=== PATIENT | male | born 1955 | race Asian ===

== ENCOUNTER 2018-01-22 10:09 | Outpatient (CLI) | payer OTHER | END 2018-01-22 10:10 | disposition critical access hospital (66) | LOC: EMS 10:09 | PROVIDERS: ATTEND Surgery | DX: R56.9 Unspecified convulsions (principal) | CPT/HCPCS: A0425; A0429 ==

== ENCOUNTER 2018-01-22 10:45 | Emergency (ER) | payer OTHER ==
[2018-01-22] MEDS ORDERED: LORazepam 2 MG/ML VIAL IVP STA (10:49)
--- NOTE | 2018-01-22 10:52 | ED Physician Documentation ---
History of Present Illness - Stated complaint Stated Complaint: SZ - Additonal information Additional information: hx from pt 62 male hx seizures apparently followed at [facility] [place] changed seizure meds three days ago - to a med starting with the letter L per EMS had 4 seizures without full recovery in between lasting a total of 20 min today then post ictal now recovering no fall - was in bed no reported recent fever cough NVD but his tongue else no injuries FSBS [employer] pt caregiver req transfer to [facility] [place] but too far EMS to take him so came to Replaced By [facility] Review of Systems Constitutional: denies: Fever Cardiac: denies: Chest pain / pressure Respiratory: denies: Dyspnea, Cough GI: denies: Vomiting Skin: reports: Laceration (s) ([place]) Neurologic: reports: Seizure. denies: Headache, Head injury Endocrine: denies: Easy bruising / bleeding Immunocompromised: denies: Immunocompromised PD PAST MEDICAL HISTORY - Present Medications Home Medications: Ambulatory Orders Medication Instructions Recorded Confirmed Lacosamide [Vimpat] 150 mg PO 01/22/18 - Allergies Allergies/Adverse Reactions: Allergies Allergy/AdvReac Type Severity Reaction Status Date / Time No Known Drug Allergies Allergy Verified 01/22/18 10:51 PD ED PE NORMAL - Vitals Vital signs reviewed: Yes - General General: Other (alert cooperative little post ictal but oriented) - HEENT HEENT: PERRL, Other (tip of tongue small lac not bleeding or requiring repair, no broken teeth) - Neck Neck: Supple, no meningeal sign - Cardiac Cardiac: RRR - Respiratory Respiratory: No respiratory distress, Clear bilaterally - Abdomen Abdomen: Soft, Non distended Results - Vitals Vitals: Vital Signs - 24 hr 01/22/18 01/22/18 10:45 12:24 Temperature 37 C 37.4 C Heart Rate 92 87 Respiratory 16 16 Rate Blood Pressure 122/83 H 122/72 O2 Saturation 93 98 Oxygen O2 Source Room air - Labs Labs: Laboratory Tests 01/22/18 11:11 Sodium 137 Potassium 3.8 Chloride 107 Carbon Dioxide 23 Anion Gap 7.0 BUN 12 Creatinine 0.9 Estimated GFR (MDRD) 86 L Glucose 112 H Calcium 8.6 PD MEDICAL DECISION MAKING - Sepsis Event Vital Signs: Vital Signs - 24 hr 01/22/18 01/22/18 10:45 12:24 Temperature 37 C 37.4 C Heart Rate 92 87 Respiratory 16 16 Rate Blood Pressure 122/83 H 122/72 O2 Saturation 93 98 Oxygen O2 Source Room air Departure - Departure Disposition: 01 Home, Self Care Clinical Impression: Seizure Condition: Good Instructions: ED Seizure Recurrent Comments: I spoke to neurology and the clothes ironer provider recommends that you continue your medications as recently prescribed Follow the usual seizure precautions (no ladders driving swimming etc) Follow up / call your personal neurologist next week. Return if worse
[2018-01-22 11:26] LABS: CALCIUM 8.6 mg/dL (8.5-10.3); CREATININE 0.9 mg/dL (0.6-1.2)
[2018-01-22 14:17] VITALS: BP 116/77
== END 2018-01-22 14:33 | disposition home or self-care (01) ==
LOC: EDBD → ED 10:45
DX: R56.9 Unspecified convulsions (principal); S01.512A Laceration without foreign body of oral cavity, initial encounter; X58.XXXA Exposure to other specified factors, initial encounter
CPT/HCPCS: 36415; 80048; 96374; 99283; 99284; J2060